=== PATIENT | male | born 1945 | race Caucasian/White ===

== ENCOUNTER 2020-12-19 15:50 | Inpatient (IN) | payer MEDICARE, OTHER ==
[~2020-12-19] VITALS: Ht 177.8 cm; Wt 80.3 kg
[2020-12-19 16:10] LABS: HEMOGLOBIN 14.7 gm/dl (14.0-17.5); RED BLOOD COUNT 4.89 M/UL (4.20-5.50); WHITE BLOOD COUNT 8.4 K/UL (4.5-11.0)
[2020-12-19 16:31] LABS: BUN/CREATININE RATIO 18 (0-10)
[2020-12-19] MEDS ORDERED: AMLODIPINE BESYL5 MG PO (20:38)
[2020-12-20 05:19] LABS: BUN/CREATININE RATIO 23 (0-10)
[2020-12-21 20:37] LABS: WHITE BLOOD COUNT 8.7 K/UL (4.5-11.0)
[2020-12-21 20:38] LABS: RED BLOOD COUNT 4.13 M/UL (4.20-5.50)
[2020-12-21 20:39] LABS: HEMOGLOBIN 12.4 gm/dl (14.0-17.5)
[2020-12-21 22:40] LABS: HEMOGLOBIN 11.6 gm/dl (14.0-17.5); RED BLOOD COUNT 3.91 M/UL (4.20-5.50); WHITE BLOOD COUNT 8.9 K/UL (4.5-11.0)
[2020-12-21 23:15] LABS: BUN/CREATININE RATIO 17 (0-10)
[2020-12-22 05:35] LABS: HEMOGLOBIN 11.5 gm/dl (14.0-17.5); RED BLOOD COUNT 3.84 M/UL (4.20-5.50); WHITE BLOOD COUNT 9.1 K/UL (4.5-11.0)
[2020-12-22 06:02] LABS: BUN/CREATININE RATIO 18 (0-10)
[2020-12-23 03:29] LABS: BUN/CREATININE RATIO 19 (0-10)
[2020-12-25 09:35] LABS: HEMOGLOBIN 12.3 gm/dl (14.0-17.5); RED BLOOD COUNT 4.13 M/UL (4.20-5.50); WHITE BLOOD COUNT 8.1 K/UL (4.5-11.0)
[2020-12-25] MEDS ORDERED: VITAMIN B-122500 MCG SL (12:35)
[2020-12-25] MEDS ORDERED: VITAMIN D325 MC6 PO (12:35)
--- NOTE | 2020-12-27 04:09 | NUR ---
PATIENT REQUEST TO GET UP IN CHAIR. CERVICAL BRACE IN PLACE . PIVOTED TO SIT UP ON EDGE OF BED AND WITH USE OF WALKER AND ASSIST X 3 PT WAS HELPED TO CHAIR. LINENS ON BED WAS CHANGED. IT WAS NOTED PATIENTS BLOOD PRESSURE DROPPED TO 68/34. HR 56. HE REPEATEDLY SAID, "IM GOING OUT " HIS COLOR BECAME ASHEN . HE ALSO BECAME DIAPHORETIC DURRING THIS TIME. HE WAS PLACED BACK INTO BED WITH ASSIST X 3 IN SUPINE POSITION . BP INCREASED TO 137/68 WITH HR 63. HE STATED RIGHT BEFORE HIS "EPISODE" HIS BACK PAIN WAS INCREASED IN SEVERITY. NO C/O AFTER RETURNING TO BED. AT BEDSIDE . WILL CONTINUE FREQENT MONITORING.
[2020-12-27 05:37] LABS: HEMOGLOBIN 11.2 gm/dl (14.0-17.5); RED BLOOD COUNT 3.79 M/UL (4.20-5.50); WHITE BLOOD COUNT 7.3 K/UL (4.5-11.0)
[2020-12-27 05:57] LABS: BUN/CREATININE RATIO 18 (0-10)
[2020-12-29 02:44] LABS: HEMOGLOBIN 11.5 gm/dl (14.0-17.5); RED BLOOD COUNT 3.99 M/UL (4.20-5.50)
[2020-12-29 02:48] LABS: WHITE BLOOD COUNT 10.9 K/UL (4.5-11.0)
[2020-12-29 03:00] LABS: BUN/CREATININE RATIO 19 (0-10)
[2020-12-30 02:41] LABS: HEMOGLOBIN 11.1 gm/dl (14.0-17.5); RED BLOOD COUNT 3.79 M/UL (4.20-5.50); WHITE BLOOD COUNT 8.5 K/UL (4.5-11.0)
[2020-12-30 03:00] LABS: BUN/CREATININE RATIO 17 (0-10)
[2020-12-31 05:17] LABS: RED BLOOD COUNT 3.7 M/UL (4.20-5.50); WHITE BLOOD COUNT 9.6 K/UL (4.5-11.0)
[2020-12-31 05:56] LABS: BUN/CREATININE RATIO 21 (0-10)
[2020-12-31] MEDS ORDERED: FLORINEF 0.1 M0.1 MG PO (09:39)
[2020-12-31] MEDS ORDERED: IBUPROFEN600 MG PO (09:39)
[2020-12-31] MEDS ORDERED: DOCUSATE SODIU100 MG PO (09:39)
== END 2020-12-31 18:45 | disposition home or self-care (01) | DRG 958 ==
LOC: ER1 15:50 → CDU 18:36 → CCU 18:36 → PROG CARE 12-28 17:18
PROVIDERS: Emergency Medicine; Internal Medicine; Orthopaedic Surgery; ADMIT Surgery
PROC: 0RG7071 Fusion of 2 to 7 Thoracic Vertebral Joints with Autologous Tissue Substitute, Posterior Approach, Posterior Column, Open Approach (ICD-10-PCS; 2020-12-21)
PROC: 0RG4071 Fusion of Cervicothoracic Vertebral Joint with Autologous Tissue Substitute, Posterior Approach, Posterior Column, Open Approach (ICD-10-PCS; 2020-12-21)
PROC: 01N80ZZ Release Thoracic Nerve, Open Approach (ICD-10-PCS; 2020-12-21)
PROC: 30233N1 Transfusion of Nonautologous Red Blood Cells into Peripheral Vein, Percutaneous Approach (ICD-10-PCS; 2020-12-21)
PROC: 0RG2071 Fusion of 2 or more Cervical Vertebral Joints with Autologous Tissue Substitute, Posterior Approach, Posterior Column, Open Approach (ICD-10-PCS; principal; 2020-12-21 10:30)
PROC: B24BZZZ Ultrasonography of Heart with Aorta (ICD-10-PCS; 2020-12-24)
DX: S22.039A Unspecified fracture of third thoracic vertebra, initial encounter for closed fracture (principal); S24.102A Unspecified injury at T2-T6 level of thoracic spinal cord, initial encounter; S22.49XA Multiple fractures of ribs, unspecified side, initial encounter for closed fracture; Z20.822 Contact with and (suspected) exposure to COVID-19; S27.329A Contusion of lung, unspecified, initial encounter; E87.2 Acidosis; R04.2 Hemoptysis; D62 Acute posthemorrhagic anemia; I50.32 Chronic diastolic (congestive) heart failure; W22.8XXA Striking against or struck by other objects, initial encounter; N40.0 Benign prostatic hyperplasia without lower urinary tract symptoms; H91.90 Unspecified hearing loss, unspecified ear; I95.1 Orthostatic hypotension; I11.0 Hypertensive heart disease with heart failure; S22.049A Unspecified fracture of fourth thoracic vertebra, initial encounter for closed fracture; E55.9 Vitamin D deficiency, unspecified; T38.0X5A Adverse effect of glucocorticoids and synthetic analogues, initial encounter; K59.00 Constipation, unspecified; E83.51 Hypocalcemia; E87.5 Hyperkalemia; R73.9 Hyperglycemia, unspecified; S42.101A Fracture of unspecified part of scapula, right shoulder, initial encounter for closed fracture; Y92.79 Other farm location as the place of occurrence of the external cause; Y93.89 Activity, other specified; Z90.49 Acquired absence of other specified parts of digestive tract; Z86.010 Personal history of colon polyps; Z88.2 Allergy status to sulfonamides; Z79.899 Other long term (current) drug therapy
CPT/HCPCS: ECHO; 36415; 71045; 71046; 71260; 72040; 72070; 72072; 72125; 72141; 72146; 73030; 76000; 80048; 80053; 80061; 81001; 82330; 82533; 82550; 82553; 82607; 82803; 82962; 83036; 83690; 83735; 83874; 84100; 84484; 85018; 85025; 85027; 85610; 86850; 86900; 86901; 86920; 93306; 96374; 96375; 96376; 97110-GP-CQ; 97116; 97116-GP-CQ; 97162; 97166; 97530; 97530-GP-CQ; 97535; 99284; C1713; C1762; C1781; J0360; J0610; J0690; J1040; J1100; J1170; J1644; J1650; J2001; J2270; J2370; J2405; J2704; J3010; J3370; J7030; J7040; J7120; P9016; P9045; Q9967; U0002